=== PATIENT | female | born 1985 | race Two or more races ===

== ENCOUNTER 2018-10-23 07:30 | Inpatient (IN) | payer BC, OTHER ==
[~2018-10-23 07:30] MED LIST: CITRIC ACID/SODIUM CITRATE 30 ML UNIT-DOSE CUP PO ONE; ELECTROLYTE-148 SOLN 1,000 ML IV SCH
[2018-10-23 08:29] VITALS: BMI 35.3
[2018-10-23] MEDS ORDERED: ELECTROLYTE-148 SOLN 1,000 ML IV SCH (08:30)
[2018-10-23] MEDS ORDERED: ONDANSETRON 4 MG/2 ML VIAL IVPUSH PRN (08:51)
[2018-10-23] MEDS ORDERED: morphine SULFATE/Preservative Free 0.5 MG/ML (1cc Syringe) ONE (09:01)
--- NOTE | 2018-10-23 09:10 | HP ---
Past Medical History - Admission History of Present Illness: 32 yo @ 37 0/7 wks by first trimester ultrasound, EDC 11/13/2018 complicated by: 1. Prior CD - desires repeat 2. Di/Di Twin gestation - last ultrasound 09/25/2018 A - 2135 g (59% ile) B - 2177 g (62% ile) <2% weight discordance 3. Desires permanent sterilization 4. Class 1 Obesity, BMI 34, normal GCT Patient presents for scheduled repeat delivery at 37 wks, as per [facility] recommendations. She reports movement, denies leakage of fluid or vaginal bleeding. Limitations to Obtaining History: No Limitations - Past Medical History Cardiovascular: No: HTN Pulmonary: No: Asthma Gastrointestinal: No: GERD ...: 3 ...Para: 1 ...Term: 1 ...: 0 ...Spon : 0 ...Induced : 1 ...Multiple Gestation: 0 ...LMP: 02/07/18 ... Weeks Gestation by Dates: 36.6 ...EDC by Dates: 11/14/18 ...EDC by Sono: 11/13/18 Heme/Onc: No: Anemia - Past Surgical History Past Surgical History: Yes: Appendectomy Hx Myomectomy: No Hx Transabdominal Cerclage: No Additional Surgical History: Appendectomy. Hemorrhoid Surgery. Delivery - Smoking History Smoking history: Never smoked Have you smoked in the past 12 months: No - Alcohol/Substance Use Hx Alcohol Use: No History of Substance Use: reports: None - Social History History of Recent Travel: No Home Medications - Allergies Allergies/Adverse Reactions: Allergies Allergy/AdvReac Type Severity Reaction Status Date / Time No Known Drug Allergies Allergy Verified 10/23/18 08:43 - Home Medications Home Medications: Ambulatory Orders Vits96/Iron Fum/Folic [ Tablet] 1 each PO DAILY 10/23/18 Family Disease History - Family Disease History Family History: Denies Review of Systems - Review of Systems Constitutional: reports: No Symptoms Neck: reports: No Symptoms Cardiovascular: reports: No Symptoms Respiratory: reports: No Symptoms Gastrointestinal: reports: No Symptoms Genitourinary: reports: No Symptoms Musculoskeletal: reports: No Symptoms Neurological: reports: No Symptoms Hematology/Lymphatic: reports: No Symptoms Physical Exam - Maternity Vital Signs: Vital Signs Temperature 98.2 F 10/23/18 08:17 Pulse Rate 87 10/23/18 08:17 Respiratory Rate 18 10/23/18 08:17 Blood Pressure 138/73 10/23/18 08:17 O2 Sat by Pulse Oximetry (%) Constitutional: Yes: Well Nourished, No Distress, Calm Cardiovascular: Yes: Regular Rate and Rhythm Lungs: Clear to auscultation - Abdominal Exam/OB Number of Fetuses: Single Presentation: Vertex Contractions: Yes Regularity: Irregular Intensity: Mild Category: I Accelerations: Non-Uniform Decelerations: None - Vaginal Exam/OB Vaginal Bleediing: No Presentation: Vertex/Position - Physical Exam Edema: Yes Edema: LLE: 1+, RLE: 1+ ...Motor Strength: WNL Psychiatric: Yes: WNL - Labs Lab Results: PNL: O positive, antibody neggative; RPR NR; HIV neg; HBsAg neg; HCV neg; GCT WNL; Parvo Imm; GBS neg; Hg [place] AA; Sequential Screen WNL
[2018-10-23] MEDS ORDERED: OXYTOCIN 20 UNITS in 0.9% NS 40 UNIT/2,000 ML INFUS.BAG IV ONE (09:14)
[2018-10-23] MEDS ORDERED: PHENYLEPHRINE HCL 10 MG/1 ML SINGLE DOSE VIAL ONE (09:29)
[2018-10-23] MEDS ORDERED: ceFAZolin SODIUM 1 GM VIAL ONE (09:29)
[2018-10-23] MEDS ORDERED: ePHEDrine SULFATE 50 MG/1 ML AMPULE ONE (09:42)
[2018-10-23] MEDS ORDERED: MIDAZOLAM HCL 2 MG/2 ML SINGLE DOSE VIAL ONE (10:09)
[2018-10-23] MEDS ORDERED: LIDOCAINE HCL 1% PRESERVATIVE FREE - 30ML VIAL ONE (10:33)
[2018-10-23] MEDS ORDERED: SENNOSIDES/DOCUSATE COMBO (SENNA PLUS) TABLET (UD) PO PRN (11:14)
[2018-10-23] MEDS ORDERED: METHYLERGONOVINE MALEATE 0.2 MG/1 ML AMP IM PRN (11:14)
[2018-10-23] MEDS ORDERED: IBUPROFEN 800 MG/8 ML IJ IVPB PRN (11:14)
[2018-10-23] MEDS ORDERED: oxyCODONE HCL 5 MG TABLET PO PRN ×2 (11:14)
[2018-10-23] MEDS ORDERED: OXYTOCIN 20 UNITS in 0.9% NS 20 UNIT/1,000 ML INFUS.BAG IV SCH (11:15)
--- NOTE | 2018-10-23 11:25 | PN ---
"Delivery - Delivery Section: Repeat Type of Anesthesia: Spinal EBL (cc): 1,000 Delivery, Single - Feeding Plan Initial Plan: Elected not to breastfeed exclusively throughout hospitalization Delivery, Multiple Births - Condition of Multiple Births [place] 2 (B) Structural Steel Erector/Automobile Washer Steam Present: Yes Infant Gender: Female Weight: 6 lb 7 oz Placenta: Yes: Expressed 1 (A) Infant Gender: Female Weight: 7 lb 1 oz Position: Right, OT Placenta: Yes: Expressed Remarks - Remarks Remarks: Indication: Prior CD, twin gestation at 37 wks, delivery per [facility] recommendation , desiring permanent sterilization Surgeon: Walter | Assist: Max | Anesthesia: Enninya IVF: 1200 | UOP: 300 | EBL: 1000 Dictation: [id number]"
[2018-10-23 12:23] LABS: VENOUS PO2 10.7 mmHg (30-40)
[2018-10-23 12:27] LABS: VENOUS PH 7.12 (7.31-7.41)
[2018-10-23 12:28] LABS: VENOUS PC02 75.2 mmHg (41-51)
[2018-10-23 12:35] LABS: VENOUS PC02 67.5 mmHg (41-51); VENOUS PO2 14.6 mmHg (30-40)
[2018-10-23 12:38] LABS: VENOUS PH 7.19 (7.31-7.41)
--- NOTE | 2018-10-24 00:21 | PN ---
Post Progress Note - Subjective Subjective: Patient without acute complaints. Tolerating clears, without complaints of nausea or vomiting. No ambulation yet. Denies fevers or chills. without difficulty Pain well controlled Keith removed this AM, no voiding yet. Denies flatus. Post Day: 1 Type of Delivery: Repeat C/S Vital Signs: Vital Signs Temperature 98.9 F 10/23/18 22:00 Pulse Rate 101 H 10/23/18 22:00 Respiratory Rate 18 10/23/18 22:00 Blood Pressure 119/58 L 10/23/18 22:00 O2 Sat by Pulse Oximetry (%) 99 10/23/18 21:00 Breast Exam: Yes: Engorged Uterus: Yes: Fundus Firm, Fundus below umbilicus Incision: Yes: Dressing dry and intact Abdomen/GI: Yes: Abdomen soft, Passing flatus, Tolerating PO. No: Abdominal Distention, Tender Lochia: Yes: Serosa Lochia, amount: Small Extremities: Yes: Calves non-tender. No: Edema Activity: Ambulating Assessment/Plan 32 yo POD # 1 s/p repeat CD + BTL, afebrile, vital signs stable, doing well 1. Continue routine postoperative care. 2. Follow up AM CBC 3. Rh positive status, no rhogam indicated. 4. Encourage ambulation and incentive spirometer use 5. Continue oral pain medication 6. Awaiting patient to void and pass flatus 7. Anticipate discharge home postoperative day #3 or #4
[2018-10-24 08:13] LABS: BASO % 0.2 % (0-2.0); EOS % 0.2 % (0-4.5); HEMATOCRIT 23.6 % (32.4-45.2); HEMOGLOBIN 8.2 GM/dL (10.7-15.3); LYMPH % 13.7 % (8-40); MCH 29.8 pg (25.7-33.7); MCHC 34.7 g/dl (32.0-36.0); MEAN CELL VOLUME 85.9 fl (80-96); MEAN PLT VOLUME 8.4 fl (7.5-11.1); MONO % 11.8 % (3.8-10.2); NEUT % 74.1 % (42.8-82.8); PLATELET COUNT 184 K/MM3 (134-434); RBC 2.75 M/mm3 (3.60-5.2); RDW 14.3 % (11.6-15.6); WHITE BLOOD COUNT 6.9 K/mm3 (4.0-10.0)
--- NOTE | 2018-10-24 09:01 | OP ---
DATE OF OPERATION: 10/23/2018 SURGEON: Tammy Watson MD WARP COILER: Weston Santana ANESTHESIOLOGIST: RADHA Burns INTRAVENOUS FLUIDS GIVEN: 1200. URINE OUTPUT: 300. ESTIMATED BLOOD LOSS: 1000. INDICATION: A 32-year-old 3, para 1, prior , at 37 weeks desiring repeat. Repeat at 37 weeks as per Maternal Medicine recommendation. She also desires permanent sterilization. SURGERY: Repeat delivery and bilateral tubal ligation via Pfannenstiel skin incision. PROCEDURE: Consents were reviewed and signed. Risks, benefits, alternatives and complications of the procedure were discussed including infection, bleeding, damage to surrounding organs such as bowel or bladder, injury to infants, tubal ligation failure. She expressed understanding and was brought to the operating room. When anesthesia was found to be adequate patient was prepped and draped in the normal sterile fashion and placed in the dorsal supine position with a leftward tilt. An approximately 11-cm skin incision was made with the knife and carried down to the underlying rectus fascia using the Bovie electrocautery. Fascia was nicked in midline and extended laterally using Ramos scissors. Inferior portion of the fascial incision was tented up using Taylor clamps, dissected off the underlying rectus muscle using Ramos scissors. Attention was brought to superior fascial incision where in a similar fashion was tented up using Taylor clamps, dissected off the underlying rectus muscle using the Ramos scissors. She was found to have a diastasis of the rectus muscles and the peritoneum was entered sharply using Metzenbaum scissors. At this point in time evaluation of the abdominal cavity revealed multiple adhesions of the omentum to the anterior abdominal wall which were taken down and electrocauterized with good hemostasis noted on the pedicles. The peritoneal incision was extended superiorly and inferiorly using the Metzenbaum scissors. The bladder flap was identified and entered sharply, created digitally. Hysterotomy was performed with a knife and extended laterally bluntly. Infant "A" was located on maternal right. The head was brought to hysterotomy site. Membranes were ruptured and clear fluid noted. The head was delivered atraumatically followed by shoulders and body without difficulty. Cord was clamped and cut. The infant was handed to waiting NICU staff. Cord blood and cord gases were collected and sent. Evaluation of the 2nd baby revealed a transverse lie. Amniotomy was performed. The 's vertex was brought to the hysterotomy. The infant's head was delivered atraumatically followed by shoulders and body without difficulty. The cord was clamped and cut. The infant was handed to waiting NICU staff. Cord blood and cord gases were collected and sent. The placenta was manually extracted. The uterus was cleared of all clot and debris. The uterus was closed using a 0 Biosyn in running fashion and the 2nd layer was an imbricated layer. Attention was brought to the left fallopian tube. It was followed to the fimbriated end. A 2-cm portion of the fallopian tube was isolated and suture ligated using 0 chromic gut. All pedicles were examined and cauterized and found to be hemostatic. Attention was brought to the right fallopian tube, which was followed to the fimbriated end. A 2-cm portion was isolated, identified and suture ligated using 0 chromic gut. Fallopian tube were transected using Metzenbaum scissors, cauterized and good hemostasis was noted from both pedicles. Evaluation of both fallopian tubes were found to be hemostatic. Bilateral ovaries were noted to be normal appearing. Evaluation of the hysterotomy site was found to be hemostatic. The peritoneum was closed using 2-0 Biosyn in running fashion. The rectus muscles were reapproximated using 0 Biosyn in an interrupted fashion. The fascia was closed using 0 Vicryl in a running fashion. Subcutaneous fat was closed using 0 Vicryl in a running fashion. The skin was reapproximated using 3-0 Vicryl. The patient tolerated the procedure well. Estimated blood loss was 1000 mL. Patient was brought to the recovery room in stable condition. Sophie [id number] MTDD
[2018-10-24] MEDS: PRENATAL VITAMINS W/ FOLIC ACID TABLET (FP) PO SCH (11:08)
[2018-10-24] MEDS: ENOXAPARIN NA (PORCINE) 40 MG/0.4 ML DISP.SYRIN SQ SCH (11:09)
[2018-10-24] MEDS: IBUPROFEN 600 MG TABLET (FP) PO PRN ×2 (14:03→21:03)
[2018-10-24] MEDS: ACETAMINOPHEN 325 MG TABLET (FP) PO PRN ×2 (14:04→21:04)
[2018-10-24] MEDS: SIMETHICONE 80 MG TAB.CHEW (FP) PO PRN ×2 (14:05→21:04)
[2018-10-24] MEDS: BISACODYL 10 MG SUPP.RECT RC PRN (15:48)
[2018-10-25] MEDS: SIMETHICONE 80 MG TAB.CHEW (FP) PO PRN ×3 (06:22→22:00)
[2018-10-25] MEDS: ACETAMINOPHEN 325 MG TABLET (FP) PO PRN ×3 (06:22→22:01)
[2018-10-25] MEDS: IBUPROFEN 600 MG TABLET (FP) PO PRN ×3 (06:23→22:01)
--- NOTE | 2018-10-25 06:30 | DS ---
Physical Exam-PASSENGER AGENT Vital Signs: Vital Signs Temperature 98.1 F 10/24/18 22:00 Pulse Rate 92 H 10/24/18 22:00 Respiratory Rate 18 10/24/18 22:00 Blood Pressure 127/65 10/24/18 22:00 O2 Sat by Pulse Oximetry (%) 99 10/23/18 21:00 Constitutional: Yes: Well Nourished, No Distress, Calm Eyes: Yes: WNL, Conjunctiva Clear, EOM Intact HENT: Yes: WNL, Atraumatic, Normocephalic Neck: Yes: WNL, Supple, Trachea Midline Cardiovascular: Yes: WNL, Regular Rate and Rhythm Respiratory: Yes: WNL, Regular, CTA Bilaterally Gastrointestinal: Yes: WNL ...Rectal Exam: Yes: WNL Renal/: Yes: WNL ....Post : Yes: Uterus firm, Uterus non-tender, Slight lochia rubra Breast(s): Yes: WNL Musculoskeletal: Yes: WNL Extremities: Yes: WNL Edema: No Integumentary: Yes: WNL Neurological: Yes: WNL, Alert, Oriented ...Motor Strength: WNL Psychiatric: Yes: WNL, Alert, Oriented Labs: CBC, BMP 10/24/18 07:30 Delivery - Delivery Vaginal Delivery: Spontaneous Section: Repeat Type of Anesthesia: Spinal Episiotomy/Laceration: None EBL (cc): 1,000 Delivery, Single - Stages of Labor Placenta: Yes: Spontaneous - Condition of Infant Gender: Female Weight: 7 lb 1 oz Position: Right, OT - 1 Minute Total Score: 9 5 Minutes Total Score: 9 - Feeding Plan Initial Plan: Elected not to breastfeed exclusively throughout hospitalization Delivery, Multiple Births - Stages of Labor Delivery Baby "A" Date: 10/23/18 Time: 09:52 Placenta/Membranes "A" Date: 10/23/18 Time: 09:55 Delivery Baby "B" Date: 10/23/18 Time: 09:54 Placenta/Membranes "B" Date: 10/23/18 Time: 09:55 - Condition of Multiple Births 2 (B) University Internship/Professional Poker Player Present: Yes University Internship: Deepa Villasenor Infant Gender: Female Weight: 6 lb 7 oz Total Hours ROM (HRS/MINS): 0/2 [place] 1 (A) University Internship/Professional Poker Player Present: Yes University Internship: Deepa Villasenor Gender: Female Weight: 7 lb 1 oz Position: Right, OT Total Hours ROM (HRS/MINS): 0/4 - [place] 1 (A) 1 Minute Score: 9 1 (A) 5 Minutes Score: 9 Discharge Summary Reason For Visit: C SECTION Procedures: Principal: repeat lst c/s Condition: Good - Instructions Diet, Activity, Other Instructions: regular diet, follow up office 4 weeks. if pain , heavy bleeding call MD Referrals: Tammy Watson MD [Staff Physician] - Disposition: HOME - Home Medications Comprehensive Discharge Medication List: Ambulatory Orders Vits96/Iron Fum/Folic [ Tablet] 1 each PO DAILY 10/23/18 Ibuprofen [Motrin -] 600 mg PO QID #28 tablet 10/24/18
--- NOTE | 2018-10-25 07:43 | PN ---
Progress Note (short form) - Note Progress Note: pod 2 s/p c/s doing well, no c/o ,voids ok, passing gas, no dizziness , no active vaginal bleeding CBC, BMP 10/24/18 07:30 Last Vital Signs Temp Pulse Resp BP Pulse Ox 98.1 F 92 H 18 127/65 99 10/24/18 22:00 10/24/18 22:00 10/24/18 22:00 10/24/18 22:00 10/23/18 21:00 abdomen soft, no distension, no cva uterus firm, non tender lochia mild no calf tenderness plan ambulate, cbc in am
[2018-10-25] MEDS: ENOXAPARIN NA (PORCINE) 40 MG/0.4 ML DISP.SYRIN SQ SCH (10:53)
[2018-10-25] MEDS: PRENATAL VITAMINS W/ FOLIC ACID TABLET (FP) PO SCH (10:53)
[2018-10-25] MEDS: BISACODYL 10 MG SUPP.RECT RC PRN (22:02)
[2018-10-26 06:53] LABS: BASO % 0.5 % (0-2.0); EOS % 4.1 % (0-4.5); HEMATOCRIT 22.3 % (32.4-45.2); HEMOGLOBIN 7.9 GM/dL (10.7-15.3); LYMPH % 20.4 % (8-40); MCH 30.5 pg (25.7-33.7); MCHC 35.3 g/dl (32.0-36.0); MEAN CELL VOLUME 86.4 fl (80-96); MEAN PLT VOLUME 7.7 fl (7.5-11.1); MONO % 7.6 % (3.8-10.2); NEUT % 67.4 % (42.8-82.8); PLATELET COUNT 277 K/MM3 (134-434); RBC 2.59 M/mm3 (3.60-5.2); RDW 14.6 % (11.6-15.6); WHITE BLOOD COUNT 6.3 K/mm3 (4.0-10.0)
[2018-10-26] MEDS: SIMETHICONE 80 MG TAB.CHEW (FP) PO PRN (07:40)
[2018-10-26] MEDS: ACETAMINOPHEN 325 MG TABLET (FP) PO PRN (07:40)
[2018-10-26] MEDS: IBUPROFEN 600 MG TABLET (FP) PO PRN (07:41)
[2018-10-26 09:27] VITALS: BP 128/67; PULSE 75; TEMP 98.5
[2018-10-26] MEDS: PRENATAL VITAMINS W/ FOLIC ACID TABLET (FP) PO SCH (09:44)
[2018-10-26] MEDS: ENOXAPARIN NA (PORCINE) 40 MG/0.4 ML DISP.SYRIN SQ SCH (09:44)
--- NOTE | 2018-10-26 15:42 | PN ---
Progress Note (short form) - Note Progress Note: pod 3 s/p c/s ,doing well, no dizziness , no excess vaginal bleeding CBC, BMP 10/26/18 06:30 Last Vital Signs Temp Pulse Resp BP Pulse Ox 98.5 F 75 18 128/67 99 10/26/18 09:25 10/26/18 09:25 10/26/18 09:25 10/26/18 09:25 10/23/18 21:00 abdomen soft, no distension, no cva incision dry, clean no calf tenderness impression anemia, asymptomatic , advised iron, vit d/c home , instruction given
--- NOTE | 2018-10-31 13:03 | PATH ---
Surgical Pathology Report Patient Name: MOLLY CRISTINA [facility]. Rec. #: [id number] /Age/Gender: 1985 (Age: 32) / F Account: [id number] Location: [facility] OBS/BICYCLE MESSENGER Taken: 10/23/2018 Received: 10/24/2018 Reported: 10/31/2018 Physicians: Tammy Watson Specimen(s) Received A: PLACENTA,TWIN B: PORTION OF LEFT FALLOPIAN TUBE C: PORTION OF RIGHT FALLOPIAN TUBE Clinical History , 37 weeks gestation, twin gestation Final Diagnosis A. PLACENTA, DELIVERY: DIAMNIOTIC DICHORIONIC TWIN PLACENTA WITH FUSED PLACENTAL DISCS. PLACENTA ARBITRARILY DESIGNATED A SHOWS FOCALLY DISRUPTED THIRD TRIMESTER PLACENTA WITH AREAS OF CALCIFICATION, 3 VESSEL UMBILICAL CORD, AND UNREMARKABLE PLACENTAL MEMBRANES. PLACENTA ARBITRARILY DESIGNATED B SHOWS FOCALLY DISRUPTED THIRD TRIMESTER PLACENTA WITH AREAS OF CALCIFICATION, 3 VESSEL UMBILICAL CORD, AND UNREMARKABLE PLACENTAL MEMBRANES. B. LEFT FALLOPIAN TUBE, PARTIAL EXCISION: FULL LUMINAL PORTION OF UNREMARKABLE FALLOPIAN TUBE. C. RIGHT FALLOPIAN TUBE, PARTIAL EXCISION: FULL LUMINAL PORTION OF UNREMARKABLE FALLOPIAN TUBE. Electronically Signed Clifford Parikh M.D. Gross Description A. Received in formalin labeled "placenta," is a 1048 g twin placenta comprised of 2 fused discs, by dividing membranes. The dividing membranes are diez and opaque. There are no clamps present on the umbilical cords, despite the indication on the requisition. Arbitrarily designated placenta "A" measures 16.0 x 11.0 x 3.4 cm. The membranes are diez, translucent with focal opacities and insert marginally. The umbilical cord of placenta "A" measures 11.5 cm in length and 1.1 cm in diameter. The cord inserts eccentrically, 2 cm to the nearest margin. No true knots or strictures are identified. Cut surface of the umbilical cord reveals 3 vessels. The surface is barry blue with minimal fibrin deposition and appropriate caliber vessels. The maternal surface is red-brown with focal defects. Sectioning reveals red-brown, spongy parenchyma. No lesions are identified. The membranes of arbitrarily designated placenta "B" are diez, translucent with focal opacities and insert marginally. The umbilical cord measures 10 cm in length and averages 1.2 cm in diameter. The cord inserts eccentrically, 4 cm to the nearest margin. No true knots or strictures are identified. Cut surface of the umbilical cord reveals 3 vessels. The surface is barry blue with minimal fibrin deposition and appropriate caliber vessels. The maternal surface is red-brown with focal defects. Sectioning reveals red-brown, spongy parenchyma. No lesions are identified. Ip Litigation Paralegal sections are submitted in 7 cassettes as follows: 1-placenta "A" membrane roll and umbilical cord; 2-3-full thickness sections of placenta "A"; 4-dividing membranes; 5-placenta "B" membrane roll and umbilical cord; 6-7-full thickness sections of placenta "B" B. Received in formalin labeled "portion of left fallopian tube," is a 1.3 cm in length portion of fallopian tube. No fimbria are present. The outer surface is diez ho and smooth. Sectioning reveals an unremarkable lumen. Ip Litigation Paralegal sections are submitted in one cassette. C. Received in formalin labeled "portion of right fallopian tube," is a 1.6 cm in length portion of fallopian tube. No fimbria are present. The outer surface is diez ho and smooth. Sectioning reveals an unremarkable lumen. Ip Litigation Paralegal sections are submitted in one cassette. 10/30/2018 [facility]10/30/2018
== END 2018-10-26 17:05 | disposition home or self-care (01) | DRG 785 ==
LOC: JLDR 07:30 → J3W 13:10
PROVIDERS: ADMIT Obstetrics & Gynecology; ATTEND Obstetrics & Gynecology
PROC: 10D00Z1 Extraction of Products of Conception, Low, Open Approach (ICD-10-PCS; principal; 2018-10-23)
PROC: 0UL70ZZ Occlusion of Bilateral Fallopian Tubes, Open Approach (ICD-10-PCS; 2018-10-23)
DX: O30.043 Twin pregnancy, dichorionic/diamniotic, third trimester (principal); O34.211 Maternal care for low transverse scar from previous cesarean delivery; O99.02 Anemia complicating childbirth; D64.9 Anemia, unspecified; O99.214 Obesity complicating childbirth; E66.9 Obesity, unspecified; Z3A.37 37 weeks gestation of pregnancy; Z37.2 Twins, both liveborn; Z30.2 Encounter for sterilization
CPT/HCPCS: 36415; 36600; 82803; 85025; 86850; 86900; 86901; 88302-TC; 88307-TC